=== PATIENT | female | born 1945 | race African-American/Black ===

== ENCOUNTER 2016-07-06 14:42 | Emergency (ER) | payer MEDICAID, MEDICARE ==
[2016-07-06 15:43] LABS: #Basophils 0.1 thou/uL (0.0-0.2); #Eosinphils 0.1 thou/uL (0.0-0.7); #Lymphocytes 1.3 thou/uL (1.20-3.40); #Monocytes 0.4 thou/uL (0.11-0.59); #Neutrophils 4.9 thou/uL (1.40-6.50); %Basophils 1.7 % (0.0-1.0); %Eosinophils 1.2 % (0.0-10.0); %Lymphocytes 19.3 % (21.0-51.0); %Monocytes 6.4 % (0.0-10.0); Hematocrit 39.7 % (36.0-47.0); Mean Platelet Volume 7.7 fL (7.4-10.4); White Blood Cell (WBC) Count 6.8 thou/uL (4.8-10.8)
[2016-07-06 16:15] LABS: ALT (SGPT) 8 U/L (0-55); AST (SGOT) 14 U/L (5-34); Alkaline Phosphatase 103 U/L (40-150); Anion Gap 18 mmol/L (10-20); BUN (Urea Nitrogen) 31 mg/dL (9.8-20.1); Bilirubin, Total 0.2 mg/dL (0.2-1.2); CK (CPK) 39 U/L (29-168); Calc. Creatinine Clearance 0 mL/min (70-130); Calcium 9.5 mg/dL (7.8-10.44); Carbon Dioxide 30 mmol/L (23-31); Chloride 96 mmol/L (98-107); Estimated GFR-MDRD 10; Globulin 4.3 g/dL (2.4-3.5); Lipase 67 U/L (8-78); Protein, Total 7.9 g/dL (5.8-8.1)
--- NOTE | 2016-07-06 16:15 | RAD ---
FRONTAL VIEW OF THE CHEST: Comparison: 07-03-16 Indication: Chest pain. FINDINGS: Cardiac silhouette accentuated by portable technique. Leads overlie the chest limiting detail. Th ere is marked prominence of the perihilar regions bilaterally. No new lobar consolidation, effusion , or pneumothorax. No additional significant interval change. IMPRESSION: 1. No focal consolidation. 2. Mild prominence of the perihilar regions may relate to edema or pneumonitis. Correlate clinical ly. Imaging follow up may be obtained for further assessment. POS: FRANCO
[2016-07-06 16:18] LABS: Troponin I 0.032 ng/mL (< 0.028)
[2016-07-06] MEDS ORDERED: Lidocaine 1% 20 ML MDV ONE (16:25)
[2016-07-06] MEDS ORDERED: HYDROcodone/Acetaminophen 5/325 mg Tablet ONE (16:47)
--- NOTE | 2016-07-06 17:20 | ERRECORD ---
[facility] EMERGENCY RECORD HPI BACK (WedJul 07, 2016 02:06 JLOY) CHIEF COMPLAINT: Patient presents for evaluation of Pt with right upper back pain radiating to right chest. Pt initially reported that this was new the past 2 hours but then related that it had actually been going on for at least a few days. She had the same pain last week when she was admitted to [facility] for the same. After a negative W/U she was sent home but 'they didn't give me anything for the pain'. HISTORIAN: History provided by patient. MECHANISM OF INJURY: No apparent mechanism of injury. LOCATION: Symptoms are localized to the back, below the right scapula. QUALITY: Pain is sharp in nature. TIME COURSE: Not the first visit for this complaint. ASSOCIATED WITH: No associated abdominal pain, No associated fever, No SOB, cough. EXACERBATED BY: Patient's condition exacerbated by deep breath, Patient's condition exacerbated by movement. RELIEVED BY: Patient's condition relieved by nothing. ROS (WedJul 07, 2016 02:09 [facility]) CONSTITUTIONAL: Historian denies chills, denies fever. ENT: Historian denies rhinorrhea, denies sore throat. CARDIOVASCULAR: Historian reports chest pain. RESPIRATORY: Historian denies cough, denies shortness of breath, denies sputum. GI: Historian denies abdominal pain, denies nausea, denies vomiting. MUSCULOSKELETAL: Historian reports back pain. SKIN: Historian denies rash, denies skin changes. NEUROLOGIC: Historian denies dizziness, denies headache. PAST MEDICAL HISTORY MEDICAL HISTORY: Flu vaccine up to date, Tetanus immunization up to date, Pneumococcal vaccine up to date, Flu vaccine up to date, Tetanus immunization up to date, Pneumococcal vaccine up to date, history of hypertension, which has been treated, Patient is compliant,musculoskeletal disorder, gout, renal disease, insufficiency, Dialysis M-W-F, CHF.REVIEWED 07/06/16. (15:36 REZE) FEMALE SURGICAL HISTORY: Lumbar back, cholecystectomy, hysterectomy, , RIGHT SHOULDER, tonsillectomy. DIALYSIS SHUNT IN LEFT ARM.REVIEWED 07/06/16. (15:36 REZE) PSYCHIATRIC HISTORY: No previous psychiatric history.REVIEWED 07/06/16. (15:36 REZE) SOCIAL HISTORY: Patient has no smoking history, Patient denies alcohol use, Patient denies drug use.REVIEWED 07/06/16. (15:36 REZE) FAMILY HISTORY: Family history is non-contributory to this case. Family history is non-contributory to this case. (15:36 REZE) NOTES: Nursing records reviewed, Agree with nursing records. (Tue &a-1R&a+25V*p+0X*[id number]*c202B*c15G*c2P*p-0X&a-25V&a+1R Name: Rachell Singer : 1945 F71 MedRec: [id number] AcctNum: [id number] Prepared: WedJul 07, 2016 02:38 by Interface Page 1 of 3 pMD [facility] EMERGENCY RECORD Jul 07, 2016 02:30 [facility]) KNOWN ALLERGIES gabapentin iodine: Reaction: Anaphylaxis PAPER TAPE: Reaction: Rash Penicillins: Reaction: Rash CURRENT MEDICATIONS (15:28 REZE) meTOPROLOL tartrate: TABLET : Strength - 100 mg : ORAL Patient Dose: once a day.Last Taken: 07/06/16. Sensipar: TABLET : Strength - 30 mg : ORAL Patient Dose: 30 mg Oral once a day.Last Taken: 07/06/16. isosorbide mononitrate: TABLET, EXTENDED RELEASE 24 HR : Strength - 30 mg : ORAL Patient Dose: once a day.Last Taken: 07/06/16. hydrALAZINE: TABLET : Strength - 50 mg : ORAL Patient Dose: 2 times a day.Last Taken: 07/06/16. VITAL SIGNS VITAL SIGNS: BP: 147/66, Pulse: 72, Resp: 22, Temp: 98.9 (Oral), Pain: 10 (Sharp), O2 sat: 100, Time: 07/06/2016 14:51. (14:51 REZE) BP: 142/67, Pulse: 76, Resp: 20, Pain: 8, O2 sat: 97 on Room Air, Time: 07/06/2016 17:00. (17:00 [facility]) PHYSICAL EXAM (WedJul 07, 2016 02:26 JLOY) CONSTITUTIONAL: Vital Signs Reviewed, Patient appears non toxic, Patient alert and oriented to person, place and time, Pt tearful in pain. EYES: Eye exam included findings of eyelids normal to inspection, Pupils equally round and reactive to light, Conjunctiva normal. ENT: Mouth exam normal, mucous membranes moist. RESPIRATORY CHEST: Respiratory exam included findings of no respiratory distress, Breath sounds clear, No wheezing, No rales, No rhonchi, Chest exam included findings of chest movement symmetrical, Tenderness, moderate, to the right anterior chest, Palpation of chest reproduces symptoms. CARDIOVASCULAR: Cardiovascular exam included findings of heart rate regular rate and rhythm, Heart sounds normal. ABDOMEN FEMALE: Abdominal exam included findings of abdomen nontender, Bowel sounds normal. BACK: Back exam included findings of normal inspection, range of motion normal, Pt with point tenderness to just below right scapula causing pain to radiate through the chest. UPPER EXTREMITY: Upper extremity exam included findings of inspection normal, Radial pulse normal, no cyanosis, no clubbing, no edema. &a-1R&a+25V*p+0X*c1051Y*c202B*c15G*c2P*p-0X&a-25V&a+1R Name: Rachell Singer : 1945 F71 MedRec: [id number] AcctNum: [id number] Prepared: WedJul 07, 2016 02:38 by Interface Page 2 of 3 pMD [facility] EMERGENCY RECORD LOWER EXTREMITY: Lower extremity exam included findings of inspection normal, Pedal pulse normal, no edema, no calf tenderness. NEURO: Neuro exam findings include patient oriented to person, place and time, [place] coma scale 15. SKIN: Skin exam included findings of skin warm, dry, and normal in color, no rash. MEDICATION ADMINISTRATION SUMMARY Drug Name: HYDROcodone-acetaminophen, Dose Ordered: 5/325 tab(s), Route: Oral, Status: Given, Time: 16:49 07/06/2016, Detailed record available in Medication Service section. PROBLEM LIST No recorded problems DIAGNOSIS (16:25 JL) FINAL: PRIMARY: Upper back pain. PRESCRIPTION (16:25 JL) acetaminophen-codeine: TABLET : 300 mg-30 mg : ORAL : Quantity: 1-2 Unit: tab(s) Route: ORAL Schedule: every 6 hours PRN Dispense: 15 May substitute. Refills: No Refills . NOTES: No Refills. DISPOSITION PATIENT: Disposition Type: Discharge, Disposition: *Discharge Home. (16:25 BERNARD) Patient left the department. (17:10 [facility]) Vincent: BERNARD=MD Meño, Waldo LINDA=HELIO Hayden, Patti [facility]=HELIO Albarado, Loren &a-1R&a+25V*p+0X*v1050G*c202B*c15G*c2P*p-0X&a-25V&a+1R Name: Rachell Singer Lucille : 1945 F71 MedRec: [id number] AcctNum: [id number] Prepared: Saul Jul 07, 2016 02:38 by Interface Page 3 of 3 pMD MTDD
--- NOTE | 2016-07-06 17:24 | PICIS ---
[facility] EMERGENCY RECORD TRIAGE (14:53 REZE) PATIENT: NAME: Rachell Singer, AGE: 71, GENDER: female, : Wed1945, TIME OF GREET: WedJul 06, 2016 14:43, PREFERRED LANGUAGE: Tanzanian, ETHNICITY: Not or , ECODE BILLING MAP: [facility], SSN: [id number], Zip Code: [address], KG WEIGHT: 64.41, PHONE: , , , PERSON ID: [id number], PCP: MD Stefano, [facility]. (14:53 REZE) COMPLAINT: LEFT SHOULDER PAIN RADIATING TO CHEST. (14:53 REZE) ADMISSION: URGENCY: 2 Emergent, ADMISSION SOURCE: Home, TRANSPORT: CAR, BED: TRIAGE. (14:53 REZE) ASSESSMENT: Assessment: c/o pain to right shoulder radiating to chest. states she was at dialysis when she started hurting and could not finish. states she wanted to come home but the pain continued at home, Symptoms began 2 hours ago. (15:36 REZE) PAIN: Patient complains of pain described as, sharp, on a scale 0-10 patient rates pain as 10, Location right shoulder radiating to chest, Pain is constant. (15:36 REZE) IMMUNIZATIONS: Flu vaccine up to date, Tetanus immunization up to date, Pneumococcal vaccine up to date. (15:36 REZE) SIRS SCORING: Heart Rate 55-109 (0), Temp range 96.8-101.1 (0), respiratory rate 12-24 (0), Mental Status altered: no (0), Infection or Suspected Infection: No. (15:36 REZE) TRIAGE SCREENING: Patient denies suicidal ideation, Patient denies presence of domestic violence. (15:36 REZE) LMP: LMP: Menopause. (15:36 REZE) PROVIDERS: TRIAGE NURSE: Patti Hayden RN. (14:53 REZE) VITAL SIGNS: BP 147/66, Pulse 72, Resp 22, Temp 98.9, (Oral), Pain 10, (Sharp), O2 Sat 100, Time 07/06/2016 14:51. (14:51 REZE) PREVIOUS VISIT ALLERGIES: iodine, PAPER TAPE, Penicillins. (14:53 REZE) iodine, PAPER TAPE, Penicillins. (15:36 REZE) KNOWN ALLERGIES gabapentin iodine: Reaction: Anaphylaxis PAPER TAPE: Reaction: Rash Penicillins: Reaction: Rash CURRENT MEDICATIONS (15:28 REZE) meTOPROLOL tartrate: TABLET : Strength - 100 mg : ORAL Patient Dose: once a day.Last Taken: 07/06/16. Sensipar: TABLET : Strength - 30 mg : ORAL Patient Dose: 30 mg Oral once a day.Last Taken: 07/06/16. isosorbide mononitrate: TABLET, EXTENDED RELEASE 24 HR : Strength - 30 mg : ORAL Patient Dose: once a day.Last Taken: 07/06/16. &a-1R&a+25V*p+0X*e7661N*c202B*c15G*c2P*p-0X&a-25V&a+1R Name: Rachell Singer : 1945 F71 MedRec: [id number] AcctNum: [id number] Prepared: WedJul 07, 2016 02:38 by Interface Page 1 of 9 pMD [facility] EMERGENCY RECORD hydrALAZINE: TABLET : Strength - 50 mg : ORAL Patient Dose: 2 times a day.Last Taken: 07/06/16. VITAL SIGNS VITAL SIGNS: BP: 147/66, Pulse: 72, Resp: 22, Temp: 98.9 (Oral), Pain: 10 (Sharp), O2 sat: 100, Time: 07/06/2016 14:51. (14:51 REZE) BP: 142/67, Pulse: 76, Resp: 20, Pain: 8, O2 sat: 97 on Room Air, Time: 07/06/2016 17:00. (17:00 [facility]) NURSING ASSESSMENT: CARDIOVASCULAR (15:24 [facility]) CONSTITUTIONAL: Complex assessment performed, Patient arrives, via hospital wheelchair, Unsteady gait, Assistance to cart, History obtained from patient, Patient appears comfortable, Patient cooperative, Patient alert, Oriented to person, place and time, Skin warm, Skin dry, Skin normal in color, Pt reporting sharp R shoulder pain beginning Wednesday. Pain is radiating to R chest and intractable. Reports she "couldn't félix nsit through dialysis, the pain was too bad- I made them stop early.". PAIN: to the right chest, beneath R scapula, on a scale 0-10 patient rates pain as 10. CARDIOVASCULAR: Cardiovascular assessment findings include heart rate normal, Heart rhythm normal sinus, Heart sounds normal, S1, S2, Left radial pulse +3(easily palpated, considered normal), Right radial pulse +3(easily palpated, considered normal). RESPIRATORY/CHEST: Breath sounds clear, Respiratory assessment findings include respiratory effort easy, Respirations regular, Conversing normally, Neck and chest exam findings include trachea midline, Chest expansion equal, Chest movement symmetrical. SAFETY: Side rails up, Cart/Stretcher in lowest position, Call light within reach, Hospital ID band on. NURSING PROCEDURE: BEDSIDE RADIOLOGY (15:38 RE) PATIENT IDENTIFIER: Patient actively involved in identification process, Patient's identity verified by patient stating name, Patient's identity verified by patient stating date. BEDSIDE RADIOLOGY: Portable chest x-ray performed. SAFETY: Side rails up, Cart/Stretcher in lowest position. NURSING PROCEDURE: AGRICULTURAL EDUCATION PROFESSOR (14:53 [facility]) AGRICULTURAL EDUCATION PROFESSOR: Cardiac monitoring indicated for complaint of chest pain, Patient placed on manager cardiac, Patient placed on non-invasive blood pressure monitor, Patient placed on continuous pulse oximetry. FOLLOW-UP: After procedure, alarms set and on, After procedure, patient tolerating monitoring. SAFETY: Side rails up, Cart/Stretcher in lowest position, Call light within reach, Hospital ID band on. NURSING PROCEDURE: DISCHARGE NOTE (17:01 [facility]) &a-1R&a+25V*p+0X*g5811J*c202B*c15G*c2P*p-0X&a-25V&a+1R Name: Rachell Singer : 1945 F71 MedRec: [id number] AcctNum: [id number] Prepared: WedJul 07, 2016 02:38 by Interface Page 2 of 9 D [facility] EMERGENCY RECORD DISCHARGE: Patient discharged to home, ambulating with assistance, family driving, accompanied by other family member, Discharge instructions given to patient, Simple or moderate discharge teaching performed, by HELIO Pimentel, Patient treated and evaluated by physician. BELONGINGS: Belongings and valuables with patient upon arrival to the Emergency Department include:, Belongings and valuables with patient at time of discharge include:. SAFETY: Side rails up, Cart/Stretcher in lowest position, Call light within reach, Hospital ID band on. NURSING PROCEDURE: EKG CHART (15: [facility]) EKG: EKG indicated for complaint of chest pain. FOLLOW-UP: After procedure, EKG for interpretation given to Dr. Wilder. SAFETY: Side rails up, Cart/Stretcher in lowest position, Call light within reach, Hospital ID band on. NURSING PROCEDURE: IV PATIENT IDENITIFIER: Patient actively involved in identification process. (15:21 [facility]) IV SITE 1: IV established, to the right antecubital, using a 20 gauge catheter, in one attempt, IV site prepped with chloraprep, Saline lock established, Flushed with normal saline (mls): 10, Labs drawn at time of placement, labeled in the presence of the patient and sent to lab, Notes: YANELI established by HELIO Pimentel with use of IV catheter and start kit. SL established with no swelling, drainage, or redness. Secured with clear Tegaderm. (15: [facility]) FOLLOW-UP SITE 1: After procedure, no drainage at IV site, After procedure, no swelling at IV site, After procedure, no redness at IV site, IV discontinued, due to patient being discharged, catheter intact. (17: [facility]) SAFETY: Side rails up, Cart/Stretcher in lowest position, Call light within reach, Hospital ID band on. (15:21 [facility]) ORDER DETAILS Order Name: AGRICULTURAL EDUCATION PROFESSOR ED, Status: Done, Time: 15:07/06/2016, User: [facility], - Ordered for: MD Wilder Joshua, - Entered by: HELIO Albarado, [facility] Jul 06, 2016 15:21, - Quantity: 1, Order Name: Cardiac Profile w/CKMB & Troponin - I, Status: Active, Time: 1507/06/2016, User: [facility], - Ordered for: MD Wilder Joshua, - Entered by: HELIO Albarado [facility] Jul 06, 2016 15:21, - Quantity: 1, Order Name: CBC with Differential, Status: Active, Time: 15:21 07/06/2016, User: [facility], - Ordered for: MD Wilder Joshua, &a-1R&a+25V*p+0X*q4100G*c202B*c15G*c2P*p-0X&a-25V&a+1R Name: Rachell Singer : 1945 F71 MedRec: [id number] AcctNum: [id number] Prepared: WedJul 07, 2016 02:38 by Interface Page 3 of 9 pMD [facility] EMERGENCY RECORD - Entered by: HELIO Albarado, [facility] Jul 06, 2016 15:21, - Quantity: 1, Order Name: CK (CPK), Status: Active, Time: 15:21 07/06/2016, User: [facility], - Ordered for: MD Wilder Joshua, - Entered by: HELIO Albarado, [facility] Jul 06, 2016 15:21, - Quantity: 1, Order Name: Comprehensive Metabolic Panel, Status: Active, Time: 15:21 07/06/2016, User: [facility], - Ordered for: MD Wilder Joshua, - Entered by: HELIO Albarado, [facility] Jul 06, 2016 15:21, - Quantity: 1, Order Name: EKG 12 Lead in Emergency Room, Status: Active, Time: 15:21 07/06/2016, User: [facility], - Ordered for: MD Wilder Joshua, - Entered by: HELIO Albarado, [facility] Jul 06, 2016 15:21, - Quantity: 1, Order Name: Lipase, Status: Active, Time: 15:21 07/06/2016, User: [facility], - Ordered for: MD Wilder Joshua, - Entered by: HELIO Albarado, [facility] Jul 06, 2016 15:21, - Quantity: 1, Order Name: SALINE LOCK, Status: Done, Time: 15:22 07/06/2016, User: [facility], - Ordered for: MD Wilder Joshua, - Entered by: HELIO Albarado [facility] Jul 06, 2016 15:21, - Quantity: 1, Order Name: Troponin - I, Status: Active, Time: 15:21 07/06/2016, User: [facility], - Ordered for: MD Wilder Joshua, - Entered by: HELIO Albarado [facility] Jul 06, 2016 15:21, - Quantity: 1, Order Name: XR Chest 1 View Portable, Status: Active, Time: 15:21 07/06/2016, User: [facility], - Ordered for: MD Wilder Joshua, - Entered by: HELIO Albarado, [place] [facility] Jul 06, 2016 15:21, - Quantity: 1. MEDICATION ADMINISTRATION SUMMARY Drug Name: HYDROcodone-acetaminophen, Dose Ordered: 5/325 tab(s), Route: Oral, Status: Given, Time: 16:49 07/06/2016, Detailed record available in Medication Service section. MEDICATION SERVICE (16:49 [facility]) HYDROcodone-acetaminophen: Order: HYDROcodone-acetaminophen (hydrocodone bitartrate/acetaminophen) - Dose: 5/325 tab(s) : Oral Ordered by: Waldo Wilder MD Entered by: Waldo Wilder MD [facility] Jul 06, 2016 16:32 , Acknowledged by: Patti Hayden RN WedJul 06, 2016 16:39 &a-1R&a+25V*p+0X*z9108Z*c202B*c15G*c2P*p-0X&a-25V&a+1R Name: Rachell Singer : 1945 F71 MedRec: [id number] AcctNum: [id number] Prepared: WedJul 07, 2016 02:38 by Interface Page 4 of 9 pMD [facility] EMERGENCY RECORD Documented as given by: Patti Hayden RN WedJul 06, 2016 16:49 Patient, Medication, Dose, Route and Time verified prior to administration. Amount given: 1 tab, Site: Medication administered P.O., Patient appears Awake and alert- acceptable, Correct patient, time, route, dose and medication confirmed prior to administration, Patient advised of actions and side-effects prior to administration, Allergies confirmed and medications reviewed prior to administration, Patient in position of comfort, Side rails up, Cart in lowest position. HPI BACK (WedJul 07, 2016 02:06 [facility]) CHIEF COMPLAINT: Patient presents for evaluation of Pt with right upper back pain radiating to right chest. Pt initially reported that this was new the past 2 hours but then related that it had actually been going on for at least a few days. She had the same pain last week when she was admitted to [facility] for the same. After a negative W/U she was sent home but 'they didn't give me anything for the pain'. HISTORIAN: History provided by patient. MECHANISM OF INJURY: No apparent mechanism of injury. LOCATION: Symptoms are localized to the back, below the right scapula. QUALITY: Pain is sharp in nature. TIME COURSE: Not the first visit for this complaint. ASSOCIATED WITH: No associated abdominal pain, No associated fever, No SOB, cough. EXACERBATED BY: Patient's condition exacerbated by deep breath, Patient's condition exacerbated by movement. RELIEVED BY: Patient's condition relieved by nothing. ROS (WedJul 07, 2016 02:09 [facility]) CONSTITUTIONAL: Historian denies chills, denies fever. ENT: Historian denies rhinorrhea, denies sore throat. CARDIOVASCULAR: Historian reports chest pain. RESPIRATORY: Historian denies cough, denies shortness of breath, denies sputum. GI: Historian denies abdominal pain, denies nausea, denies vomiting. MUSCULOSKELETAL: Historian reports back pain. SKIN: Historian denies rash, denies skin changes. NEUROLOGIC: Historian denies dizziness, denies headache. PAST MEDICAL HISTORY MEDICAL HISTORY: Flu vaccine up to date, Tetanus immunization up to date, Pneumococcal vaccine up to date, Flu vaccine up to date, Tetanus immunization up to date, Pneumococcal vaccine up to date, history of hypertension, which has been treated, Patient is compliant,musculoskeletal disorder, gout, renal disease, insufficiency, Dialysis M-W-F, CHF.REVIEWED 07/06/16. (15:36 [facility]) FEMALE SURGICAL HISTORY: Lumbar back, cholecystectomy, &a-1R&a+25V*p+0X*d1554H*c202B*c15G*c2P*p-0X&a-25V&a+1R Name: Rachell Singer : 1945 F71 MedRec: [id number] AcctNum: [id number] Prepared: WedJul 07, 2016 02:38 by Interface Page 5 of 9 pMD [facility] EMERGENCY RECORD hysterectomy, , RIGHT SHOULDER, tonsillectomy. DIALYSIS SHUNT IN LEFT ARM.REVIEWED 07/06/16. (15:36 REZE) PSYCHIATRIC HISTORY: No previous psychiatric history.REVIEWED 07/06/16. (15:36 REZE) SOCIAL HISTORY: Patient has no smoking history, Patient denies alcohol use, Patient denies drug use.REVIEWED 07/06/16. (15:36 REZE) FAMILY HISTORY: Family history is non-contributory to this case. Family history is non-contributory to this case. (15:36 REZE) NOTES: Nursing records reviewed, Agree with nursing records. (WedJul 07, 2016 02:30 JLOY) PHYSICAL EXAM (WedJul 07, 2016 02:26 JLOY) CONSTITUTIONAL: Vital Signs Reviewed, Patient appears non toxic, Patient alert and oriented to person, place and time, Pt tearful in pain. EYES: Eye exam included findings of eyelids normal to inspection, Pupils equally round and reactive to light, Conjunctiva normal. ENT: Mouth exam normal, mucous membranes moist. RESPIRATORY CHEST: Respiratory exam included findings of no respiratory distress, Breath sounds clear, No wheezing, No rales, No rhonchi, Chest exam included findings of chest movement symmetrical, Tenderness, moderate, to the right anterior chest, Palpation of chest reproduces symptoms. CARDIOVASCULAR: Cardiovascular exam included findings of heart rate regular rate and rhythm, Heart sounds normal. ABDOMEN FEMALE: Abdominal exam included findings of abdomen nontender, Bowel sounds normal. BACK: Back exam included findings of normal inspection, range of motion normal, Pt with point tenderness to just below right scapula causing pain to radiate through the chest. UPPER EXTREMITY: Upper extremity exam included findings of inspection normal, Radial pulse normal, no cyanosis, no clubbing, no edema. LOWER EXTREMITY: Lower extremity exam included findings of inspection normal, Pedal pulse normal, no edema, no calf tenderness. NEURO: Neuro exam findings include patient oriented to person, place and time, Patricio coma scale 15. SKIN: Skin exam included findings of skin warm, dry, and normal in color, no rash. EVENTS TRANSFER: Triage to Emergency Triage. (WedJul 06, 2016 14:53 REZE) Emergency Triage to Emergency Room *TR1. (15:20 [facility]) Removed from Emergency Emergency Room *TR1. (17:10 [facility]) TRIGGER POINT INJECTION (WedJul 07, 2016 02:32 JL) TIMEOUT: Side and/or site verified, Patient identification &a-1R&a+25V*p+0X*n0156R*c202B*c15G*c2P*p-0X&a-25V&a+1R Name: Rachell Singer : 1945 F71 MedRec: [id number] AcctNum: [id number] Prepared: WedJul 07, 2016 02:38 by Interface Page 6 of 9 pMD [facility] EMERGENCY RECORD confirmed, Sterile procedures observed. TRIGGER POINT INJECTION: Verbal consent obtained, Trigger point injection indicated for pain control, Single or multiple trigger points(s), 1 or 2 muscle(s) injection performed, to right back, Patient tolerated the procedure well. PROBLEM LIST No recorded problems DIAGNOSIS (16:25 JL) FINAL: PRIMARY: Upper back pain. DISPOSITION PATIENT: Disposition Type: Discharge, Disposition: *Discharge Home. (16:25 JL) Patient left the department. (17:10 [facility]) INSTRUCTION (16:26 JL) DISCHARGE: BACK SPRAIN/STRAIN. FOLLOWUP: MD Stefano, [facility], [address] [place], [place] [id number], , Follow up with Primary Care Physician in 3-4 days. PRESCRIPTION (16:25 JL) acetaminophen-codeine: TABLET : 300 mg-30 mg : ORAL : Quantity: 1-2 Unit: tab(s) Route: ORAL Schedule: every 6 hours PRN Dispense: 15 May substitute. Refills: No Refills . NOTES: No Refills. IMAGING *EKG: Image captured from scanner. (17:09 [facility]) *DISCHARGE INSTRUCTIONS RECEIPT: Image captured from scanner. (17:09 [facility]) *SUPPLY CHARGE SHEET: Image captured from scanner. (17:10 [facility]) ADMIN (WedJul 07, 2016 02:33 JLOY) DIGITAL SIGNATURE: MD Wilder Joshua. RESULTS (16:20 [facility]) LABORATORY: Troponin - I Collection DT: WedJul 06, 2016 15:55, See comment below , RECOLLECTED, 2+ HEMOLYSED@ ER ROOM#: ER*TR1 . Cardiac Profile w/CKMB & TropI Collection DT: WedJul 06, 2016 15:55, See comment below , RECOLLECTED, 2+ HEMOLYSED@ ER ROOM#: ER*TR1 , CKMB 1.2 ng/mL, Range (0-6.6), *Troponin I 0.032 - H ng/mL, Range (< 0.028), Reference Range , 0.00 - 0.028 ng/mL Negative 0.029 - 0.29 ng/mL , Indeterminate &a-1R&a+25V*p+0X*a1651T*c202B*c15G*c2P*p-0X&a-25V&a+1R Name: Rachell Singer : 1945 F71 MedRec: [id number] AcctNum: [id number] Prepared: WedJul 07, 2016 02:38 by Interface Page 7 of 9 pMD [facility] EMERGENCY RECORD Greater or Equal to 0.3 ng/mL Strongly suggests [place] , . Lipase Collection DT: WedJul 06, 2016 15:55, See comment below , RECOLLECTED, 2+ HEMOLYSED , Lipase 67 U/L, Range (8-78). CK (CPK) Collection DT: WedJul 06, 2016 15:55, See comment below , RECOLLECTED, 2+ HEMOLYSED , CK (CPK) 39 U/L, Range (29-168). Comprehensive Metabolic Panel Collection DT: WedJul 06, 2016 15:55, See comment below , RECOLLECTED, 2+ HEMOLYSED , Sodium 140 mmol/L, Range (136-145), Potassium 3.7 mmol/L, Range (3.5-5.1), *Chloride 96 - L mmol/L, Range (98-107), Carbon Dioxide 30 mmol/L, Range (23-31), Anion Gap 18 mmol/L, Range (10-20), *BUN (Urea Nitrogen) 31 - H mg/dL, Range (9.8-20.1), *Creatinine 5.05 - H mg/dL, Range (0.6-1.1), Estimated GFR-MDRD 10 , Reference Range for Estimated GFR: Greater than 90, mL/min/1.73 m2 NOTE: The MDRD equation has not been validated for use, with the elderly (over 70 years of age), women, patients with, serious comorbid condition or persons with extremes of body size, muscle, mass, or nutritional status. , *Glucose 116 - H mg/dL, Range (83-110), Calcium 9.5 mg/dL, Range (7.8-10.44), Bilirubin, Total 0.2 mg/dL, Range (0.2-1.2), Protein, Total 7.9 g/dL, Range (5.8-8.1), NOTE: Plasma values are generally 0.3 to 0.5 g/dL higher than serum values, due to the presence of fibrinogen. , Albumin 3.6 g/dL, Range (3.4-4.8), *Globulin 4.3 - H g/dL, Range (2.4-3.5), *Alb/Glob Ratio 0.8 - L g/dL, Range (1.2-2.2), Alkaline Phosphatase 103 U/L, Range (40-150), AST (SGOT) 14 U/L, Range (5-34), ALT (SGPT) 8 U/L, Range (0-55). CBC with Differential Collection DT: WedJul 06, 2016 15:38, White Blood Cell (WBC) Count 6.8 thou/uL, Range (4.8-10.8), Red Blood Cell (RBC) Count 4.20 mill/uL, Range (4.20-5.40), Hemoglobin 12.7 g/dL, Range (12.0-16.0), Hematocrit 39.7 %, Range (36.0-47.0), Mean Corpuscular Volume 94.6 fl, Range (81.0-99.0), Mean Corpuscular Hemoglobin 30.2 pg, Range (27.0-31.0), *Mean Corpuscular HGB CONC 31.9 - L g/dL, Range (32.0-36.0), *RBC Distribution Width 15.4 - H %, Range (11.5-14.5), Platelet Count 251 thou/uL, Range (130-400), Mean Platelet Volume 7.7 fL, Range (7.4-10.4), %Neutrophils 71.5 %, Range (42.0-75.0), &a-1R&a+25V*p+0X*e5220P*c202B*c15G*c2P*p-0X&a-25V&a+1R Name: Rachell Singer : 1945 F71 MedRec: [id number] AcctNum: [id number] Prepared: WedJul 07, 2016 02:38 by Interface Page 8 of 9 pMD [facility] EMERGENCY RECORD *%Lymphocytes 19.3 - L %, Range (21.0-51.0), %Monocytes 6.4 %, Range (0.0-10.0), %Eosinophils 1.2 %, Range (0.0-10.0), *%Basophils 1.7 - H %, Range (0.0-1.0), #Neutrophils 4.9 thou/uL, Range (1.40-6.50), #Lymphocytes 1.3 thou/uL, Range (1.20-3.40), #Monocytes 0.4 thou/uL, Range (0.11-0.59), #Eosinphils 0.1 thou/uL, Range (0.0-0.7), #Basophils 0.1 thou/uL, Range (0.0-0.2). Vincent: BERNARD=MD Meño, Waldo LINDA=HELIO Hayden, Patti [facility]=HELIO Albarado, Loren &a-1R&a+25V*p+0X*s7935E*c202B*c15G*c2P*p-0X&a-25V&a+1R Name: Rachell Singer : 1945 F71 MedRec: [id number] AcctNum: [id number] Prepared: WedJul 07, 2016 02:38 by Interface Page 9 of 9 pMD [facility] MEDICATION RECONCILIATION You were seen in the Emergency Department on: WedJul 06, 2016 KNOWN ALLERGIES gabapentin iodine: Reaction: Anaphylaxis PAPER TAPE: Reaction: Rash Penicillins: Reaction: Rash MEDICATIONS GIVEN WHILE IN THE EMERGENCY DEPARTMENT HYDROcodone-acetaminophen (hydrocodone bitartrate/acetaminophen) - Dose: 5/325 tab(s) : Oral HOME MEDICATIONS CONTINUE PRESCRIBED hydrALAZINE : TABLET : Strength - 50 mg : ORAL Continue as prescribed Patient had been takin times a day. Last Taken: 07/06/16. isosorbide mononitrate : TABLET, EXTENDED RELEASE 24 HR : Strength - 30 mg : ORAL Continue as prescribed Patient had been taking: once a day. Last Taken: 07/06/16. meTOPROLOL tartrate : TABLET : Strength - 100 mg : ORAL Continue as prescribed Patient had been taking: once a day. Last Taken: 07/06/16. Sensipar : TABLET : Strength - 30 mg : ORAL Continue as prescribed Patient had been takin mg Oral once a day. Last Taken: 07/06/16. PRESCRIPTIONS (1) &a-1R&a+25V*p+0X*g8797V*c202B*c15G*c2P*p-0X&a-25V&a+1R Name: Rachell Singer : 1945 F71 MedRec: [id number] AcctNum: [id number] Prepared: WedJul 07, 2016 02:38 by Interface pMD [facility]
== END 2016-07-06 17:10 | disposition home or self-care (01) ==
LOC: NAV ERS 14:42
DX: M54.6 Pain in thoracic spine (principal); I10 Essential (primary) hypertension; Z79.899 Other long term (current) drug therapy
CPT/HCPCS: 20552; 71010; 80053; 82553; 83690; 84484; 85025; 93005; J2001

== ENCOUNTER 2017-09-11 22:15 | Emergency (ER) | payer MEDICARE, MEDICAID ==
[2017-09-11] MEDS ORDERED: Lidocaine 1% 20 ML MDV ONE (22:34)
[2017-09-11] MEDS ORDERED: Acetaminophen/Codeine 30-300mg Tablet ONE (22:47)
== END 2017-09-11 22:53 | disposition home or self-care (01) ==
LOC: NAV ERS 22:15
DX: M62.89 Other specified disorders of muscle (principal); I13.2 Hypertensive heart and chronic kidney disease with heart failure and with stage 5 chronic kidney disease, or end stage renal disease; N18.6 End stage renal disease; I50.9 Heart failure, unspecified; M10.9 Gout, unspecified; Z99.2 Dependence on renal dialysis; Z79.899 Other long term (current) drug therapy
CPT/HCPCS: 20552; J2001

== ENCOUNTER 2017-11-19 15:27 | Inpatient (IN) | payer MEDICARE, MEDICAID ==
[2017-11-19] MEDS ORDERED: Loperamide HCl 2 MG CAP PO PRN (18:38)
[2017-11-19] MEDS: Acetaminophen/Codeine 30-300mg Tablet PO PRN (19:03)
[2017-11-19] MEDS: cloNIDine 0.1 MG TAB PO SCH (20:42)
[2017-11-19] MEDS: tiZANidine HCl 4 MG TAB PO PRN (20:43)
[2017-11-19] MEDS: Famotidine 20 MG TAB PO SCH (21:12)
--- NOTE | 2017-11-20 00:33 | HP ---
DATE OF ADMISSION: 11/19/2017 DATE OF HISTORY AND PHYSICAL: 11/19/2017 HISTORY OF PRESENT ILLNESS: Ms. Singer is a very pleasant 72-year-old black female who is on renal di alysis Wednesday, Wednesday, and Wednesday under the auspices of Dr. Judge. Unfortunately, she had so me bleeding at her dialysis site and bled quite a bit. She was brought to [facility], found to be very anemic, that was stabilized and she was also found to be very weak. She had dialysis thi s morning and was transferred to [facility] for physical therapy and occupational the rapy to increase her strength and her stamina. The patient states she has several other complaints. She states that Dr. Bunny Singer operated her back and is much better, but still is very weak and still painful. Patient also states that she has had some abdominal pain and had very little appetite, but started ea ting over the last couple of days. She complains of right middle quadrant abdominal pain and somethi ng swelling there. She states that had quite a bit of pain. She did not tell any of these things to the [facility] doctor when she was at [place]. PAST MEDICAL HISTORY: Positive for; 1. Hypertension. 2. Pulmonary hypertension. 3. Chronic anemia. 4. End-stage renal disease on hemodialysis on Wednesday, Wednesday, and Wednesday by Dr. Judge. 5. Chronic mitral valve problems, followed by Dr. Chandan Mark. 6. Pancreatitis. 7. Gout. 8. Generalized weakness. PAST SURGICAL HISTORY: 1. Appendectomy. 2. Tonsillectomy. 3. Cholecystectomy. 4. Back surgery by Dr. Singer, back in about 6 months ago. 5. Breast biopsy. 6. Hysterectomy. 7. Colonoscopy by Dr. Louie, unknown date. 8. Right shoulder repair. 9. Left arm dialysis shunt. SOCIAL HISTORY: Reveals the patient is . Does not smoke, does not drink alcohol, does not do caffeine. She is a retired sitter for patients. ALLERGIES: Reveals patient is allergic to GABAPENTIN, PENICILLIN, IODINE, SHELLFISH, and PAPER TAPE. MEDICATIONS: She has been taken in home include; 1. Norvasc 5 mg every day. 2. Lisinopril 5 mg every day. 3. Catapres 0.1 mg b.i.d. 4. Tylenol No. 3 p.r.n. pain. 5. Zofran. 6. Zanaflex. FAMILY HISTORY: Reveals the patient's dad at age 49 of cirrhosis of the liver. The patient's m other at age 62, she had myocardial infarction. Patient has no brothers and 1 sister. Her one sister is 83 years old, but had breast cancer. FAMILY HISTORY: Positive for cirrhosis, coronary artery disease, hypertension, and cancer. REVIEW OF SYSTEMS: Reveal the patient feels tired and weak. She states it has been going on, especi ally since she was not eating. She said her appetite was poor and she lost some weight, although she does not know how much. Now, her appetite is better. She thinks she will gain weight. She denies any skin problems. Denies any allergy problems except for subacute congestion. She states her heari ng is very good. She states her eyesight is poor and she has cataracts. Respiratory tarango, she state s she gets somewhat short of breath and only can walk a short period of time before she gets short of breath, maybe 20 feet. She does walk with a walker. Denies any wheezing, but she has dyspnea on ex ertion. Denies any chest pain, orthopnea or edema, claudication or palpitations. She does state patti t Dr. Mark has told her that she has a heart murmur. She does have occasional nausea and vomitin g usually in the morning and chronic diarrhea, but no constipation or bloody stools. No hemorrhoids. No melena. She denies any nocturia, hematuria, incontinence, dysuria, or frequency. She does have some arthritis and has had gout in the past. She complains of no significant problems except occasi onal back pain. She states she is very weak. She does have a lot of stress lately, but has never be en on anxiety or depressive medicines. Her memory and concentration are good. She is a FULL [employer]. PHYSICAL EXAMINATION: GENERAL: This is a well-developed, well-nourished, pleasant white female in no apparent distress at this time. HEENT: Reveals normocephalic, nontraumatic cranium. Pupils are equally round and reactive. Bilater al mild cataracts are noted. Extraocular movements are intact. Nose and throat are somewhat dry. T he patient has probably six teeth on the top and probably about 12-13 teeth on the bottom with some d ental caries. NECK: Supple, without mass, nodes or bruits. LUNGS: The chest is clear to auscultation. No rales, no rhonchi, no wheezes are heard. No crackles are noted. HEART: Reveals a regular rate and rhythm, but a 3/6 SCM is noted. Noted in the chart, she has smiley l valve problems. Regular rate and rhythm. ABDOMEN: Slightly obese, soft, nontender at this time. No rebound or guarding is noted. Normal bow el sounds are noted in all 4 quadrants. No organomegaly is noted. GENITOURINARY: Deferred. EXTREMITIES: Reveal no clubbing, cyanosis, or edema, just generalized weakness. The patient's left leg, both extensors and flexors are decreased to 3/5 in lower extremity. Upper extremities are stron g. She is oriented to person, place, time, and situation. ASSESSMENT: 1. Anemia. 2. Generalized weakness. 3. End-stage renal disease. 4. Hypertension. 5. Pulmonary hypertension. 6. Chronic mitral valve problems. 7. History of pancreatitis. 8. History of gout. 9. Generalized weakness. 10. Left side weakness, most likely secondary to prior stenosis, which is corrected by Dr. Bunny foley about 6 months ago. PLAN: 1. Continue to monitor the patient's blood pressure closely. 2. Monitor the patient's pain management. 3. Monitor the patient for signs and symptoms of congestive heart failure. 4. Monitor the patient's abdomen for pancreatitis. 5. Stress ulcer prophylaxis. 6. Decubitus precautions. 7. Deep venous thrombosis prophylaxis. 8. Physical therapy and occupational therapy.
[2017-11-20 05:28] LABS: #Eosinphils 0.1 thou/uL (0.0-0.7); #Lymphocytes 0.7 thou/uL (1.20-3.40); #Monocytes 0.5 thou/uL (0.11-0.59); #Neutrophils 3.5 thou/uL (1.40-6.50); %Basophils 0.9 % (0.0-1.0); %Eosinophils 2.7 % (0.0-10.0); %Lymphocytes 14.1 % (21.0-51.0); %Monocytes 9.5 % (0.0-10.0); %Neutrophils 72.8 % (42.0-75.0); Anisocytosis MODERATE=16-30 cells (100X) (0-5/hpf); Elliptocytes SLIGHT = 2-5 cells (100X) (0-1/hpf); Hemoglobin 8.6 g/dL (12.0-16.0); Hypochromia SLIGHT = 6-15 cells (100X) (0-5/hpf); MDiff Complete? YES; Mean Corpuscular HGB CONC 30.8 g/dL (32.0-36.0); Mean Platelet Volume 6.9 fL (7.4-10.4); Microcytosis SLIGHT = 6-15 cells (100X) (0-5/hpf); Ovalocytes SLIGHT = 2-5 cells (100X) (0-1/hpf); PLT Morphology Comment Appears Adequate; Platelet Count 151 thou/uL (130-400); RBC Distribution Width 18.5 % (11.5-14.5); Red Blood Cell (RBC) Count 3.06 mill/uL (4.20-5.40); Tear Drops SLIGHT = 2-5 cells (100X) (0-1/hpf); White Blood Cell (WBC) Count 4.8 thou/uL (4.8-10.8)
[2017-11-20 05:38] LABS: ALT (SGPT) 9 U/L (8-55); AST (SGOT) 12 U/L (5-34); Albumin 3.2 g/dL (3.4-4.8); Alkaline Phosphatase 185 U/L (40-150); Anion Gap 16 mmol/L (10-20); BUN (Urea Nitrogen) 35 mg/dL (9.8-20.1); Bilirubin, Total 0.3 mg/dL (0.2-1.2); Calc. Creatinine Clearance 10 mL/min (70-130); Calcium 10.4 mg/dL (7.8-10.44); Carbon Dioxide 28 mmol/L (23-31); Chloride 98 mmol/L (98-107); Estimated GFR-MDRD 10; Globulin 3.2 g/dL (2.4-3.5); Glucose 105 mg/dL (83-110); Potassium 4.8 mmol/L (3.5-5.1); Protein, Total 6.4 g/dL (6.0-8.3); Sodium 137 mmol/L (136-145)
[2017-11-20] MEDS: Amlodipine 5 MG TAB PO SCH (08:13)
[2017-11-20] MEDS: Lisinopril 5 MG TAB PO SCH (08:14)
[2017-11-20] MEDS: Famotidine 20 MG TAB PO SCH ×2 (08:14→20:09)
[2017-11-20] MEDS: cloNIDine 0.1 MG TAB PO SCH ×2 (08:14→20:09)
[2017-11-20] MEDS: Acetaminophen/Codeine 30-300mg Tablet PO PRN ×2 (08:15→16:02)
[2017-11-20] MEDS: tiZANidine HCl 4 MG TAB PO PRN ×2 (08:18→16:04)
[2017-11-20] MEDS: Calcium Carbonate 500 MG ChewTAB PO PRN ×2 (10:47→13:59)
[2017-11-20] MEDS: Ondansetron ODT 4 MG TAB PO PRN (21:46)
[2017-11-21] MEDS: Calcium Carbonate 500 MG ChewTAB PO PRN ×2 (02:27→15:32)
--- NOTE | 2017-11-21 03:06 | PRG ---
DATE OF ADMISSION: 11/19/2017 DATE OF SERVICE: 11/20/2017 HISTORY OF PRESENT ILLNESS: Ms. Singer is a very pleasant 72-year-old black female who is on renal di alysis Wednesday, Wednesday, and Wednesday by Dr. Judge. Unfortunately, the patient had bleeding at h er dialysis site and bled quite a bit, which woke her up in the night. Bed was full of blood. She w as brought to [facility], found to be anemic. She was stabilized, had a couple of stitches placed and was dialyzed in the next morning. She was noted to be very weak and she was supposed to h ave a stent in her dialysis fistula, but apparently, Medicare did not approve that. She comes to us very weak for physical therapy and occupational therapy. SUBJECTIVE: The patient states she did have some abdominal pain and very little appetite. We did st art her on Pepcid twice a day and Tums, which has been helping, but she still continues to have probl ems. Most likely we will need to get a GI consult and evaluation for an ulcer. She has already had her gallbladder out. The patient is also noted to be somewhat short of breath at night and have sleep apnea. Apparently, she had a sleep study done in 07/2017 and has severe obstructive sleep apnea, but she never did get h er CPAP machine. We will order one of those for her while she is in the hospital. The patient otherwise states she is feeling a little bit better. She is here for physical therapy an d occupational therapy. PHYSICAL EXAMINATION: VITAL SIGNS: Reveal blood pressure this morning was 176/74, pulse 62, respirations 18, O2 sat 97% on room air, T-max 98.2. GENERAL: This is a well-developed, well-nourished, slightly obese black female in no apparent distre ss at this time. HEENT: Reveals normocephalic, nontraumatic cranium. Pupils are equally round and reactive. Extraoc ular movements intact. Nose and throat are slightly dry, but clear. NECK: Supple, without mass, nodes or bruits. LUNGS: Chest is clear to auscultation. No rales, rhonchi or wheezes are heard. HEART: Reveals a regular rate and rhythm with a 3/6 systolic ejection murmur is noted. She does hav e mitral valve problems with regular rate and rhythm. ABDOMEN: Slightly obese, soft. No specific tenderness, but the patient complains of some epigastric problems. She states the Pepcid and the times to make it better. Normal bowel sounds in all 4 quad rants. No organomegaly is noted. No rebound or guarding is noted. GENITOURINARY: Deferred. EXTREMITIES: Reveal no clubbing, cyanosis or edema, just generalized weakness. NEUROLOGIC: The patient is oriented to person, place, and time. ASSESSMENT: 1. Gastrointestinal upset. 2. End-stage renal disease on dialysis Wednesday, Wednesday, and Wednesday. 3. Anemia. 4. Hypertension. 5. Pulmonary hypertension. 6. Chronic mitral valve problems. 7. History of pancreatitis. 8. History of gout. 9. Generalized weakness. 10. 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 PLAN: 1. Continue Protonix at this time. 2. Order CPAP machine. 3. Continue to monitor the patient's blood pressure closely. 4. Follow the patient's pain management. 5. Monitor the patient for signs and symptoms of congestive heart failure. 6. Repeat labs tomorrow morning. 7. Evaluate the patient for recurrent pancreatitis. 8. Stress ulcer prophylaxis. 9. Decubitus precautions. 10. Deep venous thrombosis prophylaxis. 11. Physical therapy and occupational therapy.
[2017-11-21] MEDS: Acetaminophen/Codeine 30-300mg Tablet PO PRN ×4 (05:27→21:13)
[2017-11-21] MEDS: tiZANidine HCl 4 MG TAB PO PRN ×4 (05:28→23:23)
[2017-11-21 06:44] LABS: Anisocytosis MODERATE=16-30 cells (100X) (0-5/hpf); Band 5 % (5-11); Eosinophils 3 % (0-10); Hemoglobin 8.9 g/dL (12.0-16.0); Hypochromia SLIGHT = 6-15 cells (100X) (0-5/hpf); Lymphocytes 27 % (21-51); MDiff Complete? YES; Mean Corpuscular HGB CONC 30.7 g/dL (32.0-36.0); Mean Corpuscular Hemoglobin 27.9 pg (27.0-31.0); Mean Corpuscular Volume 90.8 fL (78.0-98.0); Mean Platelet Volume 6.6 fL (7.4-10.4); Microcytosis SLIGHT = 6-15 cells (100X) (0-5/hpf); Monocytes 7 % (0-10); Neutrophil 58 % (42-75); Ovalocytes SLIGHT = 2-5 cells (100X) (0-1/hpf); PLT Morphology Comment Appears Adequate; Platelet Count 148 thou/uL (130-400); Poikilocytosis MODERATE=16-30 cells (100X) (0-5/hpf); RBC Distribution Width 18.2 % (11.5-14.5); Red Blood Cell (RBC) Count 3.18 mill/uL (4.20-5.40); Target Cells SLIGHT = 2-5 cells (100X) (0-1/hpf); Tear Drops SLIGHT = 2-5 cells (100X) (0-1/hpf); White Blood Cell (WBC) Count 5.1 thou/uL (4.8-10.8)
[2017-11-21 06:53] LABS: ALT (SGPT) 12 U/L (8-55); AST (SGOT) 19 U/L (5-34); Albumin 3.3 g/dL (3.4-4.8); Alkaline Phosphatase 196 U/L (40-150); Anion Gap 19 mmol/L (10-20); BUN (Urea Nitrogen) 49 mg/dL (9.8-20.1); Bilirubin, Total 0.4 mg/dL (0.2-1.2); Calc. Creatinine Clearance 8 mL/min (70-130); Calcium 10.7 mg/dL (7.8-10.44); Carbon Dioxide 25 mmol/L (23-31); Chloride 96 mmol/L (98-107); Estimated GFR-MDRD 7; Globulin 3.5 g/dL (2.4-3.5); Glucose 124 mg/dL (83-110); Lipase 25 U/L (8-78); Potassium 5.6 mmol/L (3.5-5.1); Protein, Total 6.8 g/dL (6.0-8.3); Sodium 134 mmol/L (136-145)
[2017-11-21] MEDS: Lisinopril 5 MG TAB PO SCH (08:50)
[2017-11-21] MEDS: cloNIDine 0.1 MG TAB PO SCH ×2 (08:50→21:12)
[2017-11-21] MEDS: Amlodipine 5 MG TAB PO SCH (08:50)
[2017-11-21] MEDS: Famotidine 20 MG TAB PO SCH ×2 (08:50→21:12)
--- NOTE | 2017-11-21 10:02 | PRG ---
DATE OF SERVICE: 11/21/2017 HISTORY OF PRESENT ILLNESS: Ms. Singer is a very pleasant 72-year-old black female with end-stage samantha al disease. She is followed by Dr. Judge. Last week, the patient had significant bleeding in h er dialysis site and awakened in her bed with the bed full of blood. She was brought to [facility] and found to be anemic and she was given a couple units of blood. She did have dialysis whil e she was there and on discharge, she was supposed to have a stent placed in her dialysis fistula so that she would not bleed any more. Medicated and proved that, so she came to us for continued physic al therapy and occupational therapy with the risk of still bleeding. SUBJECTIVE: The patient states she had a good night last night. She is already up this morning comp laining of some abdominal indigestion again, she is presently on Tums and Pepcid. She states she has had this problem off and on for a long time. The last time she saw Dr. Louie was about 2 years ago when he did a scope and some doctor from [place] came down also did a scope. She already had her gallbladder out, so that is not going to be the etiology of this. The patient does have a history of obstructive sleep apnea, severe. She never has got her CPAP machi ne, so while she is in the hospital, we will work on that otherwise. PHYSICAL EXAMINATION: VITAL SIGNS: Today reveal blood pressure is still pending. The blood pressure last night was 160/70 , pulse 62, respirations 18, O2 sat 97% on 2 liters, T-max is 98.2. GENERAL: This is a well-developed, well-nourished, very pleasant black female in no apparent distres s at this time. HEENT: Reveals normocephalic, nontraumatic cranium. Pupils are equally round and reactive. Nose an d throat are somewhat dry this morning. NECK: Supple, without mass, nodes or bruits. LUNGS: Chest is clear to auscultation. No cough is noted. No rales, rhonchi or wheezes are heard. CARDIOVASCULAR: Heart reveals a regular rate and rhythm. Patient does have a 2-3/6 systolic ejectio n murmur. She also has history of mitral valve problems and is followed by Dr. Chandan Mark. ABDOMEN: Obese, soft, nontender. Hyperactive bowel sounds are noted this morning. The patient j carlos es diarrhea or significant constipation. She states she has a bowel movement every morning. She yared d the Pepcid does seem to help and make her stomach better. It may be that she is sensitized to the [place], which she takes as needed for pain. GENITOURINARY: Deferred. EXTREMITIES: Reveal no clubbing, cyanosis or edema, just generalized weakness. NEUROLOGIC: The patient is oriented to person, place and time. ASSESSMENT: 1. Abdominal upset. 2. End-stage renal disease on dialysis Wednesday, Wednesday, and Wednesday by Dr. Judge. 3. Hypertension. 4. Pulmonary hypertension. 5. Chronic mitral valve problems. 6. Anemia. 7. Recent bleed from a dialysis fistula site. 8. History of pancreatitis. 9. History of gout. 10. Generalized weakness. 11. Left-sided weakness secondary to prior stenosis, no CVA. PLAN: 1. Continue Pepcid at this time. 2. Continue Tums, only p.r.n. 3. We will investigate getting a CPAP machine since she has already had her sleep apnea study. 4. Monitor the patient's blood pressure closely. 5. Follow patient for pain management. 6. Monitor the patient for signs and symptoms of congestive heart failure. 7. Labs will be this morning. 8. Follow patient closely for recurrent pancreatitis. 9. Stress ulcer prophylaxis. 10. Decubitus precautions. 11. Deep venous thrombosis prophylaxis. 12. Continue physical therapy and occupational therapy.
[2017-11-21] MEDS: Ondansetron ODT 4 MG TAB PO PRN (11:27)
[2017-11-22] MEDS: Calcium Carbonate 500 MG ChewTAB PO PRN (05:53)
[2017-11-22] MEDS: Famotidine 20 MG TAB PO SCH ×2 (08:04→20:31)
[2017-11-22] MEDS: Ondansetron ODT 4 MG TAB PO PRN (08:04)
[2017-11-22] MEDS: Acetaminophen/Codeine 30-300mg Tablet PO PRN ×2 (08:05→18:38)
[2017-11-22] MEDS: Amlodipine 5 MG TAB PO SCH (08:06)
[2017-11-22] MEDS: Lisinopril 5 MG TAB PO SCH (08:06)
[2017-11-22] MEDS: cloNIDine 0.1 MG TAB PO SCH ×2 (08:06→20:31)
--- NOTE | 2017-11-22 21:10 | PRG ---
DATE OF SERVICE: 11/22/2017 DATE OF ADMISSION: 11/19/2017 HISTORY OF PRESENT ILLNESS: Ms. Singer is a very pleasant 72-year-old black female with end-stage samantha al disease. She had significant bleeding after dialysis last week. When she went home, she went to bed, but awakened up several hours later with a bed full of blood. She was brought to [facility] and found to be anemic. Given a couple units of blood and she had dialysis done there. When s he was discharged, she was to have a stent placed in her fistula, but that was not done because it wa s not approved by Medicare. She was transferred to us for continued physical therapy and occupationa l therapy. SUBJECTIVE: The patient states she had a good night last night. Her stomach is feeling somewhat bet ter, but she still has some indigestion. Most likely it is because of the pain medicine that she is taking. She was supposed to see Dr. Louie a couple of years ago which she did. At that time, [facility] did not find any significant GI problems. She is supposed to have follow up with Dr. Louie, b ut has not done that yet. She is on her way to get dialysis at this time. She does have a history of obstructive sleep apnea a nd does have approval for CPAP machine, which she has not gotten yet. PHYSICAL EXAMINATION: VITAL SIGNS: Reveal blood pressure this morning 177/89 and 146/69, pulse 95, respirations 18, T-max 98.0. GENERAL: This is a well-developed, well-nourished, pleasant black female in no apparent distress at this time. HEENT: Reveals normocephalic, nontraumatic cranium. Pupils are equally round and reactive. Extraoc ular movements intact. Nose and throat are slightly dry, but clear. NECK: Supple without masses, nodes or bruits. LUNGS: Chest is clear to auscultation. No cough or cold is noted. No rales, rhonchi or wheezes are heard. HEART: Reveals a regular rate and rhythm. The patient has a 2/6 systolic ejection murmur. She does have a history of mitral valve problems and is followed by Dr. Mark. ABDOMEN: Obese, soft and nontender, without organomegaly. She does have normal bowel sounds this mo rning. They are not hyperactive or hypoactive. : Deferred. EXTREMITIES: Reveal no clubbing, cyanosis or edema. There is generalized weakness. NEUROLOGIC: The patient is oriented to person, place, and time. PAST MEDICAL HISTORY: 1. Upset abdomen with some nausea. 2. End-stage renal disease on dialysis Wednesday, Wednesday, and Wednesday with Dr. Judge. 3. Hypertension. 4. Pulmonary hypertension. 5. Mitral valve, chronic problems. 6. Anemia. 7. Recent bleed from dialysis fistula site. 8. History of pancreatitis. 9. History of gout. 10. Generalized weakness. 11. 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 ASSESSMENT AND PLAN: 1. Limit narcotics as much as possible, that is most likely the etiology of her upset stomach. 2. Continue Pepcid. 3. Continue Tums p.r.n. 4. We will investigate getting her CPAP machine for her. 5. Monitor the patient's blood pressure closely. 6. Monitor the patient for pain management. 7. Monitor the patient for signs and symptoms of congestive heart failure. 8. Labs this morning is relatively good. Her amylase and lipase were within normal limits. 9. Stress ulcer prophylaxis. 10. Decubitus precautions. 11. Deep venous thrombosis prophylaxis. 12. Continue physical therapy and occupational therapy.
[2017-11-23] MEDS: cloNIDine 0.1 MG TAB PO SCH ×2 (08:52→20:06)
[2017-11-23] MEDS: Famotidine 20 MG TAB PO SCH ×2 (08:52→20:06)
[2017-11-23] MEDS: Amlodipine 5 MG TAB PO SCH (08:52)
[2017-11-23] MEDS: Lisinopril 5 MG TAB PO SCH (08:53)
[2017-11-23] MEDS: Acetaminophen/Codeine 30-300mg Tablet PO PRN ×3 (08:53→19:24)
--- NOTE | 2017-11-23 15:20 | PRG ---
DATE OF SERVICE: 11/23/2017 DATE OF ADMISSION: 11/19/2017 HISTORY OF PRESENT ILLNESS: Ms. Singer is a very pleasant 72-year-old black female with end-stage samantha al disease on hemodialysis followed by Dr. Judge. Reports after dialysis last week, she had a s ignificant fistula bleed that was controlled when she went home. She went to bed and awakened in the middle of night with her bed soaking wet blood. She called EMS and was brought to the [facility] where couple of stitches were placed. She eventually was redialyzed and had no pro blems. Dr. Judge felt that he wanted to put a stent in that area so it would not bleeding more. So he scheduled that but that was not approved by Jeff by Medicare. Eventually, the patient was t ransferred to [facility] for physical therapy and occupational therapy to treat her g eneralized weakness. SUBJECTIVE: The patient states she feels better today, a little stronger. She had a good dialysis y . We had a long discussion today on her sleep apnea and that she flunked a sleep test and we need to get her CPAP machine. She states she would definitely use that if it can make her feel bett er. Most likely it may cause less cramps in her lower extremities and we should add supplements to h er that may help with some of her restless legs and oxygenation to her lower extremities. PHYSICAL EXAMINATION: VITAL SIGNS: Reveal blood pressure this morning 157/70, pulse 66, O2 sat 96% on room air. GENERAL: This is a well-developed, well-nourished, pleasant black female in no apparent distress at this time. HEENT: Reveals normocephalic, nontraumatic cranium. Pupils equally round and reactive. Extraocular movements intact. Nose and throat are slightly dry, but clear. NECK: Supple without masses, nodes or bruits. CHEST: Clear to auscultation. No cough or cold is noted. No rales, rhonchi or wheezes are noted. HEART: Reveals a regular rate and rhythm without murmurs, gallops or rubs. The patient does have a 2/6 systolic ejection murmur. She has a history of mitral valve problem and is followed by Dr. Shlomo jean. ABDOMEN: Obese, slightly soft and nontender without organomegaly. No rebound or guarding is noted. : Deferred. EXTREMITIES: Reveal no clubbing, cyanosis or edema. The patient still has some generalized weakness and is in a wheelchair. NEUROLOGIC: The patient is oriented to person, place, and time. ASSESSMENT: 1. Upset of abdomen, still having somewhat nausea, but much better this morning. 2. End-stage renal disease, on hemodialysis Wednesday, Wednesday and Wednesday, followed by Dr. Judge . 3. Hypertension. 4. Pulmonary hypertension. 5. Mitral valve, chronic problems. 6. Anemia. 7. Recent bleed from dialysis fistula site. 8. History of pancreatitis. 9. History of gout. 10. Generalized weakness. 11. 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 ASSESSMENT: 1. We will limit her narcotics as much as possible. 2. Narcotics maybe the etiology of her queasy stomach. 3. Continue Pepcid. 4. Continue Tums p.r.n. 5. Investigate getting her CPAP machine for her. 6. Monitor the patient's blood pressure closely. 7. Monitor the patient for pain management. 8. Monitor the patient for signs and symptoms of congestive heart failure. 9. Labs are pending. 11. Continue stress ulcer prophylaxis. 12. Continue decubitus precautions. 13. Continue physical therapy and occupational therapy.
[2017-11-23] MEDS: tiZANidine HCl 4 MG TAB PO PRN ×2 (15:44→20:10)
[2017-11-24] MEDS: Famotidine 20 MG TAB PO SCH ×2 (08:11→20:18)
[2017-11-24] MEDS: Acetaminophen/Codeine 30-300mg Tablet PO PRN ×2 (08:11→17:13)
[2017-11-24] MEDS: tiZANidine HCl 4 MG TAB PO PRN ×2 (08:12→17:13)
[2017-11-24] MEDS: Lisinopril 5 MG TAB PO SCH (08:14)
[2017-11-24] MEDS: cloNIDine 0.1 MG TAB PO SCH ×2 (08:14→20:18)
[2017-11-24] MEDS: Amlodipine 5 MG TAB PO SCH (08:14)
--- NOTE | 2017-11-25 01:08 | PRG ---
DATE OF ADMISSION: 11/19/2017 DATE OF SERVICE: 11/23/2017 HISTORY OF PRESENT ILLNESS: Ms. Singer is a very pleasant 72-year-old black female with end-stage samantha al disease on hemodialysis. She is followed by Dr. Judge. Unfortunately, she had a bleed throu gh her fistula, manifested states itself as the patient awakened in the middle of a pool of blood in her bed. She was taken to [facility], transfused, and had dialysis. She had a couple of ep isodes of bleeding, was presently stable. She was discharged from [facility], was supposed to see Dr. Judge for him to do a stent in her fistula. Unfortunately, Medicare/Medicaid did not approve that, so she was transferred to [facility] for continued physical therapy, o ccupational therapy, and monitoring. PHYSICAL EXAMINATION: VITAL SIGNS: Today reveal blood pressure this morning was 141/65, pulse 64-82, respirations 16, O2 s at 93% on room air. T-max is 98.8. GENERAL: This is a well-developed, well-nourished, black female in no apparent distress at this time . She does complain of some abdominal pain which is better today. She is presently on Tums and Pepc id. HEENT: Reveals normocephalic, nontraumatic cranium. Pupils are equally round and reactive. Extraoc ular movements are intact. Nose and throat are slightly dry, but clear. NECK: Supple, without masses or bruits. CHEST: Clear to auscultation. No rales, rhonchi, wheezes, or cough is noted. HEART: Reveals a regular rate and rhythm without murmurs, gallops, or rubs. Does have a 2/6 systoli c ejection murmur. The patient has a history of mitral valve problems and is followed by Dr. Aleida bain. ABDOMEN: Soft, nontender, without organomegaly. Normal bowel sounds are noted. No rebound or guard ing is noted. GENITOURINARY: Deferred. EXTREMITIES: Reveal no clubbing, cyanosis, or edema. Fistula for dialysis is not bleeding at this t akanksha. NEUROLOGIC: The patient is oriented x3. ASSESSMENT: 1. End-stage renal disease, on hemodialysis Wednesday, Wednesday, Wednesday. 2. Hypertension. 3. Pulmonary hypertension. 4. Mitral valve, chronic problems. 5. Anemia. 6. Recent bleeding from dialysis fistula, which is presently stable. 7. Recent history of pancreatitis. 8. History of gout. 9. Generalized weakness. 10. 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 PLAN: 1. Continue to limit and wean narcotics. 2. Continue Pepcid. 3. Continue Tums. 4. Waiting on getting her CPAP machine. 5. Monitor the patient's blood pressure closely. 6. Monitor the patient for pain management. 7. Monitor the patient for signs and symptoms of congestive heart failure. 8. Labs are pending. 9. Continue stress prophylaxis. 10. Continue decubitus precautions. 11. Continue physical therapy and occupational therapy.
[2017-11-25] MEDS: Ondansetron ODT 4 MG TAB PO PRN (08:13)
[2017-11-25] MEDS: Amlodipine 5 MG TAB PO SCH (09:09)
[2017-11-25] MEDS: cloNIDine 0.1 MG TAB PO SCH ×2 (09:10→20:39)
[2017-11-25] MEDS: Lisinopril 5 MG TAB PO SCH (09:10)
--- NOTE | 2017-11-25 10:15 | PRG ---
DATE OF SERVICE: 11/25/2017 HISTORY OF PRESENT ILLNESS: Ms. Singer is a very pleasant 72-year-old black female with end-stage samantha al disease on hemodialysis followed by Dr. Judge. Unfortunately, she had a bleed from her fistu la which awakened her in the middle of night when she woke up in a pool of blood. She was taken to [facility] transfused, and had dialysis. She has had a couple episodes of that and is suppos ed to be having a fistula fixed this evening. She is going to be transferred over to Dr. Judge' s facility to fix that. PHYSICAL EXAMINATION: VITAL SIGNS: Today reveal blood pressure 157/72, pulse 71, respirations 18, O2 sat 97% on room air, temperature max is 97.7. GENERAL: This is a well-developed, well-nourished, very pleasant black female in no apparent distres s at this time. HEENT: Reveals normocephalic, nontraumatic cranium. Pupils equal, round, and reactive. Extraocular movements intact. Nose and throat are slightly dry. NECK: Supple, without mass, nodes or bruits. LUNGS: Chest is clear to auscultation. No rales, no rhonchi, no wheezes are heard. CARDIOVASCULAR: Reveals a regular rate and rhythm, 2/6 systolic ejection murmur is noted. The patie nt does have mitral valve problems and is followed by Dr. Mark for that problem. ABDOMEN: Soft, slightly hyperactive bowel sounds. The patient did vomit 2 times this morning, mostl y her breakfast. She has continued to have problems with nausea. She has seen Dr. Lee Regalado in the past and we will get her an outpatient appointment with his office. : Deferred. EXTREMITIES: Reveal no clubbing, cyanosis or edema. NEUROLOGIC: The patient is oriented x3. IMPRESSION: 1. End-stage renal disease, on hemodialysis Wednesday, Wednesday, Wednesday. 2. Hypertension. 3. Pulmonary hypertension. 4. Chronic mitral valve problems. 5. Anemia. 6. Recently bleed from dialysis fistula which is supposed to be repaired this evening. 7. History of pancreatitis. 8. History of gout. 9. Generalized weakness. 10. 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 PLAN: 1. Wean narcotics as able. 2. Continue Pepcid and Tums. 3. Continue acquiring her CPAP machine. 4. Moderate the patient's blood pressure closely. 5. Monitor the patient for pain management. 6. Watch the patient closely for signs and symptoms of congestive heart failure. 7. Continue stress ulcer prophylaxis. 8. Appointment with Dr. Lee Regalado. 9. Appointment with Dr. Robbie Singer for continued left-sided weakness which is apparently getting wor se. He has operated on her back in the past. 10. Decubitus precautions. 11. Continue PT and OT.
[2017-11-25] MEDS: Acetaminophen/Codeine 30-300mg Tablet PO PRN ×2 (10:36→20:39)
[2017-11-25] MEDS: tiZANidine HCl 4 MG TAB PO PRN ×2 (10:36→20:40)
[2017-11-25] MEDS: Famotidine 20 MG TAB PO SCH (20:39)
[2017-11-26] MEDS: tiZANidine HCl 4 MG TAB PO PRN ×2 (06:05→18:48)
[2017-11-26] MEDS: Acetaminophen/Codeine 30-300mg Tablet PO PRN ×2 (06:05→18:47)
[2017-11-26 06:12] VITALS: BMI 26.0
[2017-11-26] MEDS: Ondansetron ODT 4 MG TAB PO PRN (09:04)
[2017-11-26] MEDS: Calcium Carbonate 500 MG ChewTAB PO PRN (09:04)
--- NOTE | 2017-11-26 10:05 | PRG ---
DATE OF SERVICE: 11/26/2017 HISTORY OF PRESENT ILLNESS: Ms. Singer is a pleasant 72-year-old black female with end-stage renal di sease that is going to hemodialysis this morning followed by Dr. Judge. Unfortunately, she had a bleed with a fistula and was awakened in the middle of the night when she had bleeding and she awak ened in a pool of blood. She was taken sent to [facility], transfused and dialyzed. She ev entually was discharged and was supposed to have a fistula fixed that evening, but apparently Medic[employer] did not approve of it. She was transferred to [facility] where she will continue [facility] physical therapy and occupational therapy. The patient went to Dr. Judge's clinic late yesterday evening and had a stent placed in her fist demond so that they would have better access and apparently would keep her from having any more bleeding also. The patient is doing well this morning, has no complaints and is back on her way to rehab. PHYSICAL EXAMINATION: GENERAL: This is a well-developed, well-nourished, black female in no apparent distress at this time . HEENT: Reveals normocephalic, nontraumatic cranium. Pupils equal, round, reactive. Extraocular mov ements intact. Nose and throat are dry, but clear. NECK: Supple, without mass, nodes or bruits. LUNGS: Chest is clear to auscultation. No rales, rhonchi, wheezes or cough is heard. CARDIOVASCULAR: The patient does have a regular rate and rhythm and has a 2/6 systolic ejection murm ur. She is followed by Dr. Chandan Mark for mitral valve problems. ABDOMEN: She is less nauseated. She has seen Dr. Lee Regalado in the past and we are trying to get an outpatient appointment with him in a couple weeks. : Deferred. EXTREMITIES: Reveal no clubbing, cyanosis or edema. NEUROLOGIC: The patient is oriented x3. IMPRESSION: 1. End-stage renal disease, on hemodialysis Wednesday, Wednesday, Wednesday. 2. Hypertension. 3. Pulmonary hypertension. 1. Chronic mitral valve problems. 2. Anemia. 3. Recent bleed from dialysis fistula which the patient went to Dr. Judge's office and had a st ent placed in her fistula last evening. 4. History of pancreatitis. 5. History of gout. 6. Generalized weakness. PLAN: 1. Continue to wean narcotics as able. 2. Continue Pepcid and Tums. 3. Continue trying to acquire her CPAP machine. Apparently, the patient does not know where her pre scription is. 4. Continue to monitor the patient's blood pressure closely. 5. Monitor the patient for pain management and wean as able. 6. Watch the patient closely for signs and symptoms of congestive heart failure. 7. Continue stress ulcer prophylaxis. 8. We are trying to get an appointment with Dr. Lee Regalado for GI followup. 9. Appointment with Dr. Robbie Singer for continued left-sided weakness which the patient states is muc h worse, although I have not seen her in years. 10. Decubitus precautions. 11. Continue physical therapy and occupational therapy.
[2017-11-26] MEDS: Lisinopril 5 MG TAB PO SCH (10:57)
[2017-11-26] MEDS: Amlodipine 5 MG TAB PO SCH (10:57)
[2017-11-26] MEDS: cloNIDine 0.1 MG TAB PO SCH ×2 (10:57→21:08)
[2017-11-26] MEDS: Famotidine 20 MG TAB PO SCH (21:08)
[2017-11-27] MEDS: Acetaminophen/Codeine 30-300mg Tablet PO PRN ×2 (09:07→18:05)
[2017-11-27] MEDS: Amlodipine 5 MG TAB PO SCH (09:10)
[2017-11-27] MEDS: cloNIDine 0.1 MG TAB PO SCH ×2 (09:11→20:19)
[2017-11-27] MEDS: Lisinopril 5 MG TAB PO SCH (09:12)
[2017-11-27] MEDS: Famotidine 20 MG TAB PO SCH (20:19)
[2017-11-27] MEDS: tiZANidine HCl 4 MG TAB PO PRN (20:19)
[2017-11-28] MEDS: Lisinopril 5 MG TAB PO SCH (08:12)
[2017-11-28] MEDS: cloNIDine 0.1 MG TAB PO SCH ×2 (08:12→20:19)
[2017-11-28] MEDS: Amlodipine 5 MG TAB PO SCH (08:12)
[2017-11-28] MEDS: Acetaminophen/Codeine 30-300mg Tablet PO PRN ×3 (08:57→20:18)
--- NOTE | 2017-11-28 10:30 | PRG ---
DATE OF SERVICE: 11/27/[address] Jorje Urbina. SUBJECTIVE: The patient feels well, lying in bed with no shortness of breath, chest pain, or nausea. She is concerned about some oozing from her fistula site, but with no significant bleeding. OBJECTIVE: VITAL SIGNS: Shows her blood pressure 169/72, temperature is 98.8, pulse 76, respirations 20, O2 sat s 96% on room air. LUNGS: Clear. CARDIAC EXAMINATION: Shows regular rhythm. ABDOMEN: Soft, nontender. SKIN AND EXTREMITIES: Display no edema, clubbing, cyanosis. The AV fistula bandaged with a slight o ozing from the bandage, not soaking through. ASSESSMENT: 1. End-stage renal disease, on hemodialysis with difficulty with arteriovenous fistula, being monito red by Dr. Judge. 2. Hypertension, controlled to goal. 3. Pulmonary hypertension, asymptomatic. 4. Anemia, stable. 5. Generalized weakness, improving daily. PLAN: Continue PT/OT. Continue hemodialysis 3 times weekly. Continue to monitor for signs of decom pensation of congestive heart failure, to continue to obtain CPAP for pulmonary hypertension, followe d closely with Dr. Regalado for bleeding, as she states that this has happened massively in the past.
--- NOTE | 2017-11-28 10:43 | PRG ---
DATE OF SERVICE: 11/28/[address] Jorje Urbina. SUBJECTIVE: The patient feels well, lying in bed, but states she does have pain going down her leg a nd is being referred to Dr. Singer by Dr. Urbina for further evaluation. She is having no nausea or vomiting. She is having no shortness of breath. She is tolerating dialysis well, but is still matty rned about the slight oozing from her fistula, which has been manipulated and a stent placed by Dr. Hector mars this week. OBJECTIVE: VITAL SIGNS: Shows her to have temperature 96.6, pulse 62, respirations 16, O2 sat 97% on room air, blood pressure 170/78. LUNGS: Clear. CARDIAC EXAMINATION: Showed regular rhythm. ABDOMEN: Soft and nontender. SKIN AND EXTREMITIES: Display no edema, clubbing, cyanosis. There is a bandage over the left AV fis khoa, shows some bleeding at the site, but has not soaked through the bandage. Straight leg raises a re negative. Lower back shows minimal spasms, but tenderness to palpation. ASSESSMENT: 1. End-stage renal disease, on hemodialysis, tolerating well. 2. Arteriovenous fistula malfunction, being monitored closely by Dr. Judge with occlusion and w ith leakin. Current back and leg pain, felt possibly due to radiculopathy and being referred to Dr. Singer. 4. Hypertension with only fair control. 5. Pulmonary hypertension with CPAP, not available at this time. PLAN: Attempt to obtain CPAP, follow up with Dr. Judge closely, monitor bleeding closely, [place] [facility] hemod[facility] 3 times weekly, and continue to monitor vital signs closely.
[2017-11-28] MEDS: tiZANidine HCl 4 MG TAB PO PRN ×2 (18:11→21:48)
[2017-11-28] MEDS: Famotidine 20 MG TAB PO SCH (20:17)
[2017-11-29] MEDS: Acetaminophen/Codeine 30-300mg Tablet PO PRN ×4 (05:42→20:35)
[2017-11-29] MEDS: tiZANidine HCl 4 MG TAB PO PRN ×3 (08:11→20:35)
[2017-11-29] MEDS: Amlodipine 5 MG TAB PO SCH (08:14)
[2017-11-29] MEDS: cloNIDine 0.1 MG TAB PO SCH ×2 (08:15→20:34)
[2017-11-29] MEDS: Lisinopril 5 MG TAB PO SCH (08:15)
--- NOTE | 2017-11-29 10:11 | PRG ---
DATE OF SERVICE: 11/29/2017 HISTORY OF PRESENT ILLNESS: Ms. Singer is a very pleasant 72-year-old black female who has end-stage renal disease. She was admitted to the hospital when she had a bleed from her fistula. She had to b e taken back to [facility] and transfused and dialyzed and eventually was transferred to [facility]. Medicare did finally approve getting her fistula fixed and that was done last by Dr. Judge. She was transferred back to [place] where she will continue to [facility] physical therapy and occupational therapy. SUBJECTIVE: The patient states she is doing very well, has no complaints today. PHYSICAL EXAMINATION: VITAL SIGNS: Blood pressure 181/78 which is little high. Pulse 61, respirations 18, O2 saturation 9 8% on room air, T-max 96.8. GENERAL: This is a well-developed, well-nourished, black female in no apparent distress at this time . HEENT: Reveals normocephalic, nontraumatic cranium. Pupils are equally round and reactive. Extraoc ular movements intact. Nose and throat are slightly dry. NECK: Supple, without mass, nodes or bruits. CHEST: Clear to auscultation. No rales, rhonchi, wheezes are heard. CARDIOVASCULAR: Reveals a regular rate and rhythm. A 2/6 systolic ejection murmur is heard, followe d by Dr. Mark for mitral valve problems. ABDOMEN: Soft, nontender, less nausea today. The patient has seen Dr. Lee Regalado in the past. She prefers to see him. : Deferred. EXTREMITIES: Reveal no clubbing, cyanosis or edema. NEUROLOGIC: The patient is oriented to person, place and time. IMPRESSION: 1. End-stage renal disease, on hemodialysis Wednesday, Wednesday, Wednesday. 2. Hypertension. 3. Pulmonary hypertension. 4. Chronic mitral valve problems. 5. Anemia. 6. Recent bleed from dialysis fistula which was repaired last . 7. History of pancreatitis. 8. History of gout. 9. Generalized weakness. PLAN: 1. Wean narcotics as able. 2. Continue Pepcid and Tums. 3. Continue to work on getting the patient's CPAP machine. 4. Monitor the patient's blood pressure. 5. Monitor the patient for pain management and wean as able. 6. Watch the patient for signs and symptoms of congestive heart failure. 7. Stress ulcer prophylaxis. 8. Decubitus precautions. 9. Deep venous thrombosis prophylaxis. 10. Appointment with Dr. Regalado for GI followup. 11. Appointment with Dr. Robbie Singer for left-sided weakness which the patient has had in the past, a lthough she says it is getting worse. 12. Continue PT and OT.
[2017-11-29] MEDS: Famotidine 20 MG TAB PO SCH (20:34)
[2017-11-30] MEDS: cloNIDine 0.1 MG TAB PO SCH ×2 (08:03→19:58)
[2017-11-30] MEDS: Lisinopril 5 MG TAB PO SCH (08:03)
[2017-11-30] MEDS: Acetaminophen/Codeine 30-300mg Tablet PO PRN ×3 (08:03→19:58)
[2017-11-30] MEDS: Amlodipine 5 MG TAB PO SCH (08:03)
[2017-11-30] MEDS: tiZANidine HCl 4 MG TAB PO PRN ×3 (08:04→19:59)
--- NOTE | 2017-11-30 09:45 | PRG ---
DATE OF SERVICE: 11/30/2017 HISTORY OF PRESENT ILLNESS: Ms. Singer is a very pleasant 72-year-old black female that has end-stag e renal disease. Unfortunately, she had bleeding from her fistula and filled up her bed with blood. She was taken to [facility], transfused and dialyzed and eventually transferred to [facility] for physical therapy and occupational therapy. While in the hospital here, the imani mcgraw was transferred back to Dr. Judge who did some type of repair and stent on her fistula. S he is doing very well, is progressing well in therapy. SUBJECTIVE: The patient has no complaints today. The patient does have an appointment with Dr. Lee Regalado on 12/14/2017 at 1340 hours at [facility] for her upset stomach that continues to aggravate her. The patient also has an appointment with Dr. Jame Singer on 12/09/2017 at 1415 hours and his office i s on [id number] in [place]. PHYSICAL EXAMINATION: VITAL SIGNS: This morning reveal blood pressure is slightly elevated 185/80. Pulse 75, respirations 20, O2 sat 95% on room air, temperature 97.5. GENERAL: This is a well-developed, well-nourished, very pleasant black female in no apparent distres s at this time. HEENT: Reveals normocephalic, nontraumatic cranium. Pupils equal, round, reactive. Extraocular mov ements intact. Nose and throat are slightly dry. NECK: Supple, without mass, nodes, bruits. LUNGS: Chest is clear to auscultation. No rales, rhonchi or wheezes are heard. CARDIOVASCULAR: Reveals a regular rate and rhythm. The patient does have a 2/6 systolic ejection mu rmur and is followed by Dr. Chandan Mark for mitral valve problems. ABDOMEN: Nontender, less nausea today. The patient does have an appointment with Dr. Regalado on the . : Deferred. EXTREMITIES: Reveal no clubbing, cyanosis or edema. NEUROLOGIC: The patient is oriented to person, place and time today. IMPRESSION: 1. End-stage renal disease, on hemodialysis Wednesday, Wednesday, Wednesday. 2. Hypertension. 3. Pulmonary hypertension. 4. Chronic mitral valve problems. 5. Anemia. 6. Recent bleed from dialysis fistula which was repaired with a stent last by Dr. Ed mc. 7. History of pancreatitis. 8. History of gout. 9. History of generalized weakness. PLAN: 1. Continue Pepcid and Tums. 2. Continue to work on getting the patient's CPAP machine. 3. Monitor the patient's blood pressure closely. 4. Monitor the patient for pain management and wean as able. 5. Watch the patient for signs and symptoms of congestive heart failure. 6. Stress ulcer prophylaxis. 7. Decubitus precautions. 8. Deep venous thrombosis prophylaxis. 9. She has an appointment with Dr. Regalado which is 12/14/2017 at 1340. 10. Appointment with Dr. Jame Singer on 12/09/2017 at 1415 hours in [place]. 11. Continue physical therapy and occupational therapy. The patient's appointment with Dr. Singer is for her left-sided weakness which the patient states is g etting worse. The patient's appointment with Dr. Regalado is for her nausea and symptoms of peptic ulcer disease.
[2017-11-30] MEDS: Ondansetron ODT 4 MG TAB PO PRN (13:22)
[2017-11-30] MEDS: Acetaminophen 325 MG TAB PO PRN (17:33)
[2017-11-30] MEDS: Calcium Carbonate 500 MG ChewTAB PO PRN (18:24)
[2017-11-30] MEDS: Famotidine 20 MG TAB PO SCH (19:58)
[2017-12-01] MEDS: Acetaminophen/Codeine 30-300mg Tablet PO PRN ×2 (05:54→20:03)
[2017-12-01] MEDS: Amlodipine 5 MG TAB PO SCH (07:39)
[2017-12-01] MEDS: cloNIDine 0.1 MG TAB PO SCH ×2 (07:39→20:03)
[2017-12-01] MEDS: Lisinopril 5 MG TAB PO SCH (07:39)
--- NOTE | 2017-12-01 07:53 | PRG ---
DATE OF SERVICE: 12/01/2017 HISTORY OF PRESENT ILLNESS: Ms. Singer is a very pleasant 72-year-old black female with end-stage samantha al disease. She was admitted to [facility] when she had a bleed from her fistula. She had to be given blood and eventually was dialyzed and transferred to [facility] for physi alexander therapy and occupational therapy. Dr. Judge took her to his office and did a repair and tito nt on her fistula so it would not bleed anymore. She is progressing well and getting much stronger. Her discharge date is probably Wednesday. SUBJECTIVE: The patient states she is doing well and get ready for dialysis this morning. The patient has an appointment with Dr. Lee Regalado on 12/14/2017 at 1300 hours in [place] for upset stomach. The patient also has an appointment with Dr. Jame Singer on 12/09/2017 at 14:15 in his office in [facility] for increasing pain and weakness. PHYSICAL EXAMINATION: VITAL SIGNS: This morning reveals the patient's blood pressure was 160/75, pulse 65-67, respirations 20, O2 sat 94-100% on room air, T-max 98.2. GENERAL: This is a well-developed, well-nourished, very pleasant black female in no apparent distres s at this time. HEENT: Reveals normocephalic, nontraumatic cranium. Pupils are equally round and reactive. Extraoc ular movements intact. Nose and throat are slightly dry. NECK: Supple, without mass, nodes or bruits. CHEST: Clear to auscultation. No rales, rhonchi or wheezes are heard. CARDIOVASCULAR: Reveals a regular rate and rhythm. The patient has a 2/6 systolic ejection murmur f ollowed by Dr. Chandan Mark for mitral valve problems. ABDOMEN: Soft, nontender, without organomegaly, normal bowel sounds are noted. No rebound or guardi ng is noted. The patient seems to be doing slightly better on Tums and Protonix. : Deferred. EXTREMITIES: Reveal no clubbing, cyanosis or edema. NEUROLOGIC: The patient is oriented to person, place, and time. IMPRESSION: 1. End-stage renal disease, on hemodialysis Wednesday, Wednesday, Wednesday. 2. Hypertension. 3. Pulmonary hypertension. 4. Chronic mitral valve problems, followed by Dr. Mark. 5. Anemia. 6. Recently bleeding from the dialysis fistula repaired with a stent by Dr. Judge. 7. History of pancreatitis. 8. History of gout. 9. Generalized weakness. PLAN: 1. Continue Pepcid and Tums. 2. Continue to working on the patient's CPAP machine. 3. Monitor the patient's blood pressure closely. 4. Monitor the patient from pain management. Wean as able. 5. Watch the patient for signs and symptoms of congestive heart failure. 6. Stress ulcer prophylaxis. 7. Decubitus precautions. 8. Deep venous thrombosis prophylaxis. 9. Appointment with Dr. Regalado on 12/14/2017 at 1340. 10. Appointment with Dr. Singer on 12/09/2017 at 14:15 in [place]. 11. Continue PT and OT. 12. The patient's appointment with Dr. Singer is for left-sided weakness which the patient states con tinues to get worse. 13. Appointment with Dr. Regalado is for her nausea and symptoms of peptic ulcer disease.
[2017-12-01] MEDS: Famotidine 20 MG TAB PO SCH (20:03)
[2017-12-02] MEDS: Ondansetron ODT 4 MG TAB PO PRN (08:22)
[2017-12-02] MEDS: Acetaminophen 325 MG TAB PO PRN (08:22)
[2017-12-02] MEDS: cloNIDine 0.1 MG TAB PO SCH ×2 (08:23→20:14)
[2017-12-02] MEDS: Lisinopril 5 MG TAB PO SCH (08:23)
[2017-12-02] MEDS: Amlodipine 5 MG TAB PO SCH (08:23)
[2017-12-02] MEDS: Acetaminophen/Codeine 30-300mg Tablet PO PRN ×3 (08:31→20:15)
[2017-12-02] MEDS: tiZANidine HCl 4 MG TAB PO PRN ×2 (12:09→20:15)
[2017-12-02] MEDS: Calcium Carbonate 500 MG ChewTAB PO PRN ×2 (16:28→20:20)
[2017-12-02] MEDS ORDERED: Sodium Chloride 0.9% 10 ML ONE (17:31)
[2017-12-02] MEDS: Famotidine 20 MG TAB PO SCH (20:14)
--- NOTE | 2017-12-02 21:28 | PRG ---
DATE OF SERVICE: 12/02/2017 DATE OF ADMISSION: 11/19/2017 HISTORY OF PRESENT ILLNESS: The patient is a 72-year-old black female with end-stage renal disease t hat was admitted to [facility] where she had bleeding from a fistula. She had to be given b lood and eventually was dialyzed and then transferred to [facility] for PT and OT. Harley analy Judge took her off and did repair on the stent for fistula, so would not bleed anymore. She has done very well and got much stronger. She is supposed to be discharged tomorrow. SUBJECTIVE: The patient states she is doing well and has no complaints today. The patient does have an appointment with Dr. Jame Singer on 12/09/2017 at 14:15 in his office in [facility] for her left-sided weakness which she states continues to get much worse. She is a new patient to me, I am not familiar with her weakness. The patient also has an appointment with Dr. Lee Regalado on 12/14/2017 at 13:00 hours in [place] [facility] for her nausea and symptoms of peptic ulcer disease which she states bothers her every day. She h as been on Pepcid and Tums, which seems to tracking her problems. PHYSICAL EXAMINATION: VITAL SIGNS: Reveal blood pressure this morning 164/72, pulse 65, respirations 16-18, O2 sat 93% on room air, T-max is 98.7. GENERAL: This is a well-developed, well-nourished, very pleasant black female in no apparent distres s at this time. HEENT: Reveals normocephalic and nontraumatic cranium. Pupils equal, round, reactive. Extraocular movements intact. Nose and throat are clear. NECK: Supple without mass, nodes or bruits. CHEST: Clear to auscultation. No rales, rhonchi or wheezes are heard. HEART: Reveals a regular rate and rhythm. The patient does have a 2/6 systolic ejection murmur foll owed by Dr. Mark for mitral valve problems. ABDOMEN: Soft and nontender without organomegaly. No rebound or guarding is noted. No tenderness i s noted. Normal bowel sounds are noted in all 4 quadrants. : Deferred. EXTREMITIES: Reveal no clubbing, cyanosis or edema. NEUROLOGIC: The patient is oriented to person, place and time. IMPRESSION: 1. End-stage renal disease, on hemodialysis Wednesday, Wednesday and Wednesday by Dr. Judge. 2. Hypertension. 3. Pulmonary hypertension. 4. History of chronic mitral valve problems, followed by Dr. Mark. 5. Anemia. 6. Recent bleed from dialysis fistula which was repaired with a stent by Dr. Judge. 7. History of pancreatitis. 8. History of gout. 9. Generalized weakness. 10. Left-sided weakness followed by Dr. Singer. PLAN: 1. Continue Pepcid and Tums. 2. The patient should be getting her CPAP machine. 3. Monitor the patient's blood pressure closely. 4. Monitor the patient for pain management and wean as able. 5. Watch the patient for signs and symptoms of congestive heart failure. 6. Stress ulcer prophylaxis. 7. Decubitus precautions. 8. Deep venous thrombosis prophylaxis. 9. Pulmonary, Dr. Regalado on 12/14/2017 at 13:40 hours. 10. Follow up with Dr. Singer on 12/09/2017 at 14:15 hours in [place]. 11. Continue PT and OT.
[2017-12-03] MEDS: Lisinopril 5 MG TAB PO SCH (07:07)
[2017-12-03] MEDS: Amlodipine 5 MG TAB PO SCH (07:08)
[2017-12-03] MEDS: cloNIDine 0.1 MG TAB PO SCH (07:08)
[2017-12-03 07:09] VITALS: BP 173/79
[2017-12-03] MEDS: tiZANidine HCl 4 MG TAB PO PRN ×2 (07:09→16:28)
[2017-12-03] MEDS: Acetaminophen/Codeine 30-300mg Tablet PO PRN ×2 (07:09→16:29)
[2017-12-03] MEDS ORDERED: Acetaminophen/Codeine 30-300mg Tablet PO SCH (10:15)
--- NOTE | 2017-12-03 10:38 | DIS ---
DATE OF ADMISSION: 11/19/2017 DATE OF DISCHARGE: 12/03/2017 This patient is a very pleasant 72-year-old black female with end-stage renal disease that was seen a [facility] Room after she had significant bleeding from her fistula. She awakened at [facility] in bed with blood all over her bed and she was taken to the ER. She had to be given a couple of un its of blood and was dialyzed at [place]. She was transferred to [facility] for physical t herapy and occupational therapy. While she was here, Dr. Judge took her to his office and a tito nt for her fistula that was leaking. She has actually done very well since then and she is ready for discharge since she has reached maximum hospital benefit. SUBJECTIVE: The patient states she is doing well. She has no complaints today. The patient does have an appointment with Dr. Jame Singer on 12/09/2017 at 14:15 hours at his office in [place] for her left-sided weakness. She states she has continued to getting much weaker, although I have nothing to compare that since she is a new patient to [place]. Patient also has an appointment with Dr. Lee Regalado on 12/14/2017 at 13:00 hours in [place] f or nausea, vomiting, and further evaluation of peptic ulcer disease which she states bothers her ever y day. PHYSICAL EXAMINATION: VITAL SIGNS: This morning reveal blood pressure slightly elevated at 173/79, pulse 58-59, respiratio ns 18, O2 sat 97% on room air, T-max 98.2. GENERAL: This is a well-developed and well-nourished black female in no apparent distress at this [facility]. HEENT: Reveals normocephalic and nontraumatic cranium. Pupils are equally round and reactive. Extr aocular movements intact. Nose and throat are slightly dry. NECK: Supple without mass, nodes, bruits. CHEST: Clear to auscultation. No rales, no rhonchi, no wheezes are heard. No crackles are heard to day. HEART: Reveals a regular rate and rhythm. The patient does have a 2/6 systolic ejection murmur foll owed by Dr. Mark for mitral valve problems. ABDOMEN: Soft and nontender without organomegaly. Normal bowel sounds are noted. No rebound or gua rding is noted. GENITOURINARY: Deferred. EXTREMITIES: Reveal no clubbing, cyanosis or edema. The patient's fistula is not draining more in h er left upper extremity. NEUROLOGIC: The patient is oriented to person, place, and time. IMPRESSION: 1. End-stage renal disease, on hemodialysis Wednesday, Wednesday and Wednesday by Dr. Judge. 2. Hypertension. 3. Pulmonary hypertension. 4. History of mitral valve problems, followed by Dr. Mark. 5. Anemia. 6. Recent bleed from dialysis fistula which was repaired with a stent by Dr. Judge. 7. History of pancreatitis. 8. History of gout. 9. Generalized weakness. 10. Chronic pain. The patient does need a pain management doctor. 11. Left-sided weakness followed by Dr. Jame Singer. 12. Gastroesophageal reflux disease followed by Dr. Lee Regalado. PLAN: 1. Patient has an appointment with Dr. Jame Singer on 12/09/2017. 2. Patient has appointment with Dr. Lee Regaldao on 12/14/2017. 3. The patient will be getting pain management consulted. 4. The patient should be getting her CPAP machine. 5. Continue to monitor the patient's blood pressure closely. 6. Monitor the patient for signs and symptoms of congestive heart failure. 7. Stress ulcer prophylaxis. 8. Decubitus precautions. 9. Deep venous thrombosis prophylaxis. 10. See me in my office either next or the following Wednesday for followup. 11. Continue physical therapy and occupational therapy as needed. DISCHARGE PLAN: The patient will be discharged this afternoon after she gets back from dialysis. DISCHARGE MEDICATIONS: Include the following; 1. Tylenol 650 p.r.n., Tylenol #3, acetaminophen with codeine which is Tylenol #3 q.6 hours p.r.n. 2. Norvasc 5 mg daily. 3. Tums p.r.n. 4. Clonidine 0.1 mg p.o. b.i.d. scheduled. 5. Pepcid 20 mg every evening. 6. Lisinopril 5 mg daily. 7. Metoprolol succinate 25 mg daily. Patient again will see me either this next or the following Wednesday in my office. It has taken more than 35 minutes to get this patient's orders and see the patient.
[2017-12-03 16:20] VITALS: TEMP 98.8
== END 2017-12-03 18:59 | disposition home health service (06) | DRG 947 ==
LOC: NAV ACUTE 15:27
PROVIDERS: ADMIT Family Medicine; ATTEND Family Medicine
DX: R53.1 Weakness (principal); N18.6 End stage renal disease; I12.0 Hypertensive chronic kidney disease with stage 5 chronic kidney disease or end stage renal disease; Z99.2 Dependence on renal dialysis; I27.20 Pulmonary hypertension, unspecified; D63.1 Anemia in chronic kidney disease; Z90.49 Acquired absence of other specified parts of digestive tract; H26.9 Unspecified cataract; K52.9 Noninfective gastroenteritis and colitis, unspecified; M19.90 Unspecified osteoarthritis, unspecified site; M10.9 Gout, unspecified; I05.9 Rheumatic mitral valve disease, unspecified; G47.30 Sleep apnea, unspecified; K21.9 Gastro-esophageal reflux disease without esophagitis
CPT/HCPCS: 36415; 80053; 82150; 83690; 85025; A4216; G8978-GP-CL; G8979-GP-CI; Q0162